=== PATIENT | female | born 1975 | race Caucasian/White ===

== ENCOUNTER 2018-11-20 18:49 | Emergency (ER) | payer OTHER ==
[2018-11-20 21:00] LABS: Absolute Lymphocytes (CBC) 1.7 K/uL (0.7-4.9); Basophils % 0.5 % (0-1.3); Eosinophils % 0.4 % (0-4.4); Hematocrit 38.4 % (36.0-45.0); Lymphocytes % 24.8 % (15.3-44.8); MPV 8.9 fL (7.6-11.3); Monocytes % 10.4 % (3.3-12.3); RBC Red Blood Cell Count 4.17 M/uL (3.86-4.86)
[2018-11-20 21:05] LABS: Urine Blood 2+ (NEG); Urine Glucose NEGATIVE (NEG); Urine Protein 2+ (NEG); Urine Specific Gravity 1.025 (1.005-1.030); Urine pH 5.5 (5.0-7.0)
[2018-11-20 21:17] LABS: Albumin 3.8 g/dL (3.4-5.0); Bilirubin Direct 0.1 mg/dL (0-0.2); Bilirubin Total 0.5 mg/dL (0.2-1.0); Potassium 3.7 mmol/L (3.5-5.1); Protein, Total 8.5 g/dL (6.4-8.2)
[2018-11-20] MEDS ORDERED: KETOROLAC 30 MG/ML INJ ONE (21:19)
[2018-11-20 21:34] LABS: Urine Bacteria >50 /HPF (<20); Urine Culture Reflex Order REFLEXED; Urine RBC <5 /HPF (NONE SEEN)
[2018-11-20] MEDS ORDERED: CEFTRIAXONE/SWI 1gm 1 GM/10 ML SYR ONE (22:26)
[2018-11-20] MEDS ORDERED: NA CHLORIDE 0.9% 250 ML ONE (22:26)
--- NOTE | 2018-11-20 23:29 | EDPHYS ---
Physician Documentation [facility] Name: Gabriel Chase Age: 43 yrs Sex: Female : 1975 Arrival Date: 11/20/2018 Time: 18:50 Bed 14 Private MD: ED Physician Bird Rosas HPI: 11/20 20:47 This 43 yrs old Female presents to ER via Ambulatory with complaints of tw4 Abdominal Pain, Nausea, Dizziness. 20:47 The patient presents to the emergency department with nausea, abdominal pain. Onset: tw4 The symptoms/episode began/occurred yesterday. Possible causes: unknown. The symptoms are aggravated by nothing. The symptoms are alleviated by nothing. Severity of symptoms: At their worst the symptoms were moderate in the emergency department the symptoms are unchanged. The patient has not experienced similar symptoms in the past. 20:47 Associated signs and symptoms: Pertinent positives: left flank pain. tw4 Historical: - Allergies: 19:06 TETRACYCLINES; aj - Home Meds: 19:06 None [Active]; aj - PMHx: 19:06 Kidney stones; aj - PSHx: 19:06 fallopian tube removal; aj - Immunization history:: Adult Immunizations up to date. - Social history:: Smoking status: Patient/guardian denies using tobacco. - Ebola Screening: : Patient negative for fever greater than or equal to 101.5 degrees Fahrenheit, and additional compatible Ebola Virus Disease symptoms Patient denies exposure to infectious person Patient denies travel to an Ebola-affected area in the 21 days before illness onset No symptoms or risks identified at this time. ROS: 20:47 Constitutional: Negative for fever, chills, and weight loss, Eyes: Negative for injury, tw4 pain, redness, and discharge, Cardiovascular: Negative for chest pain, palpitations, and edema, Respiratory: Negative for shortness of breath, cough, wheezing, and pleuritic chest pain, Back: Negative for injury and pain, MS/Extremity: Negative for injury and deformity, Skin: Negative for injury, rash, and discoloration, Neuro: Negative for headache, weakness, numbness, tingling, and seizure. 20:47 Abdomen/GI: Positive for abdominal pain, Negative for Exam: 20:47 Constitutional: This is a well developed, well nourished patient who is awake, alert, tw4 and in no acute distress. Head/Face: Normocephalic, atraumatic. Chest/axilla: Normal chest wall appearance and motion. Nontender with no deformity. No lesions are appreciated. Cardiovascular: Regular rate and rhythm with a normal S1 and S2. No gallops, murmurs, or rubs. Normal PMI, no JVD. No pulse deficits. Respiratory: Lungs have equal breath sounds bilaterally, clear to auscultation and percussion. No rales, rhonchi or wheezes noted. No increased work of breathing, no retractions or nasal flaring. Abdomen/GI: Soft, non-tender, with normal bowel sounds. No distension or tympany. No guarding or rebound. No evidence of tenderness throughout. Back: No spinal tenderness. No costovertebral tenderness. Full range of motion. MS/ Extremity: Pulses equal, no cyanosis. Neurovascular intact. Full, normal range of motion. Neuro: Awake and alert, GCS 15, oriented to person, place, time, and situation. Cranial nerves II-XII grossly intact. Motor strength 5/5 in all extremities. Sensory grossly intact. Cerebellar exam normal. Normal gait. Vital Signs: 19:06 BP 133 / 72; Pulse 77; Resp 16; Temp 98.0; Pulse Ox 100% on R/A; Weight 63.5 kg; Height 4 ft. 11 in. (149.86 cm); 20:20 BP 166 / 52; Pulse 74; Resp 16; Temp 98.8; Pulse Ox 99% on R/A; Pain 7/10; ch 22:02 BP 126 / 62; Pulse 68; Resp 14; Temp 98.8; Pulse Ox 99% on R/A; Pain 6/10; ch 23:43 BP 115 / 62; Pulse 65; Resp 14; Temp 98.8; Pulse Ox 99% on R/A; Pain 4/10; ch 19:06 Body Mass Index 28.28 (63.50 kg, 149.86 cm) MDM: 19:09 Patient medically screened. 11/20 19:13 Order name: Basic Metabolic Panel [facility] 11/20 19:13 Order name: CBC with Diff; Complete Time: 21:21 11/20 21:20 Interpretation: Within normal limits. 11/20 19:13 Order name: Creatinine for Radiology; Complete Time: 22:44 [facility] 11/20 22:45 Interpretation: Within normal limits: CRE 0.84. [facility] 11/20 19:13 Order name: Hepatic Function; Complete Time: 21:20 [facility] 11/20 21:20 Interpretation: Normal except: TP 8.5; GLOB 4.7; A/G 0.8; AST 6. [facility] 11/20 19:13 Order name: Lipase; Complete Time: 21:21 [facility] 11/20 21:21 Interpretation: Within normal limits: LIP 81. [facility] 11/20 19:14 Order name: Basic Metabolic Panel; Complete Time: 21:20 [facility] 11/20 21:20 Interpretation: Normal except: GFR 72. [facility] 11/20 20:35 Order name: Chest Single View XRAY [facility] 11/20 20:50 Order name: Urine Microscopic Only; Complete Time: 22:44 [facility] 11/20 22:45 Interpretation: UWBC >50; UBACT >50. [facility] 11/20 20:57 Order name: Urine Dipstick--Ancillary (enter results); Complete Time: 21:21 [facility] 11/20 21:21 Interpretation: Normal except: UESTR 1+; U NIT POSITIVE; UBLD 2+; UKET 1+; UPROT 2+. [facility] 11/20 20:57 Order name: Urine --Ancillary (enter results); Complete Time: 21:21 [facility] 11/20 21:21 Interpretation: Within normal limits: URINE PREG NEG. [facility] 11/20 21:22 Order name: CT Stone Protocol [facility] 11/20 21:36 Order name: Urine Culture [facility] 11/20 19:13 Order name: IV Saline Lock; Complete Time: 20:56 [facility] 11/20 19:13 Order name: Labs collected and sent; Complete Time: 20:56 [facility] 11/20 19:13 Order name: Urine Dipstick-Ancillary (obtain specimen); Complete Time: 20:56 [facility] 11/20 20:35 Order name: Urine Test (obtain specimen); Complete Time: 20:56 [facility] Administered Medications: 20:54 Drug: TORadol 30 mg Route: IVP; Site: left antecubital; 21:30 Follow up: Response: No adverse reaction 22:31 Drug: Rocephin - (cefTRIAXone) 1 grams Route: IVPB; Infused Over: 30 mins; Site: left ch antecubital; Disposition: 11/20/18 23:28 Discharged to Home. Impression: Urinary tract infection, site not specified. - Condition is Stable. - Discharge Instructions: Urinary Tract Infection, Adult, Urinary Tract Infection, Adult, [id number]. - Prescriptions for Zofran 4 mg Oral Tablet - take 1 tablet by ORAL route every 12 hours As needed; 20 tablet. Macrobid 100 mg Oral Capsule - take 1 capsule by ORAL route every 12 hours for 10 days; 20 capsule. - Work release form, Medication Reconciliation Form, Thank You Letter, Antibiotic Education, Prescription Opioid Use form. - Follow up: Private Physician; When: Upon discharge from the Emergency Department; Reason: If symptoms return, Recheck today's complaints, Continuance of care. - Problem is new. - Symptoms have improved. Signatures: Dispatcher [employer] EDMS Samaria Jones RN RN ch Myers, Amanda, RN RN aj Wadley, Terrence, MD MD tw4 Corrections: (The following items were deleted from the chart) 23:44 23:28 11/20/2018 23:28 Discharged to Home. Impression: Urinary tract infection, site ch not specified. Condition is Stable. Forms are Medication Reconciliation Form, Thank You Letter, Antibiotic Education, Prescription Opioid Use. Follow up: Private Physician; When: Upon discharge from the Emergency Department; Reason: If symptoms return, Recheck today's complaints, Continuance of care. Problem is new. Symptoms have improved. tw4
--- NOTE | 2018-11-20 23:29 | ER ---
Nurse's Notes [facility] Name: Gabriel Chase Age: 43 yrs Sex: Female : 1975 Arrival Date: 11/20/2018 Time: 18:50 Bed 14 Private MD: Diagnosis: Urinary tract infection, site not specified Presentation: 11/20 19:05 Presenting complaint: Patient states: Left flank pain that started suddenly today with aj nausea. Transition of care: patient was not received from another setting of care. Onset of symptoms was November 20, 2018. Risk Assessment: Do you want to hurt yourself or someone else? Patient reports no desire to harm self or others. Initial Sepsis Screen: Does the patient meet any 2 criteria? No. Patient's initial sepsis screen is negative. Does the patient have a suspected source of infection? No. Patient's initial sepsis screen is negative. Care prior to arrival: None. 19:05 Method Of Arrival: Ambulatory aj 19:05 Acuity: DARSHAN 3 aj Triage Assessment: 19:06 General: Appears in no apparent distress. comfortable, Behavior is calm, cooperative, aj appropriate for age. Pain: Complains of pain in posterior aspect of left lateral abdomen and anterior aspect of left lateral abdomen. Neuro: Level of Consciousness is awake, alert, obeys commands, Oriented to person, place, time, situation, Appropriate for age. Respiratory: Airway is patent Respiratory effort is even, unlabored, Respiratory pattern is regular, symmetrical. GI: Reports nausea. Derm: Skin is intact, is healthy with good turgor, Skin is pink, warm \T\ dry. normal. Historical: - Allergies: 19:06 TETRACYCLINES; aj - Home Meds: 19:06 None [Active]; aj - PMHx: 19:06 Kidney stones; aj - PSHx: 19:06 fallopian tube removal; aj - Immunization history:: Adult Immunizations up to date. - Social history:: Smoking status: Patient/guardian denies using tobacco. - Ebola Screening: : Patient negative for fever greater than or equal to 101.5 degrees Fahrenheit, and additional compatible Ebola Virus Disease symptoms Patient denies exposure to infectious person Patient denies travel to an Ebola-affected area in the 21 days before illness onset No symptoms or risks identified at this time. Assessment: 20:20 General: Appears in no apparent distress. comfortable, Behavior is calm, cooperative, ch appropriate for age. Pain: Complains of pain in left flank and left mid back and anterior aspect of left lateral abdomen and posterior aspect of left lateral abdomen Pain currently is 8 out of 10 on a pain scale. Pain began gradually, last night. 20:20 Neuro: No deficits noted. Respiratory: No deficits noted. Breath sounds are clear ch bilaterally. GI: No signs and/or symptoms were reported involving the gastrointestinal system. Bowel sounds present X 4 quads. Abd is soft and non tender X 4 quads. Reports nausea, vomiting. Derm: Skin is pink, warm \T\ dry. 21:47 Reassessment: Patient appears in no apparent distress at this time. Patient and/or ch family updated on plan of care and expected duration. Pain level reassessed. Patient is alert, oriented x 3, equal unlabored respirations, skin warm/dry/pink. 22:02 Reassessment: Patient appears in no apparent distress at this time. No changes from previously documented assessment. Patient and/or family updated on plan of care and expected duration. Pain level reassessed. Patient is alert, oriented x 3, equal unlabored respirations, skin warm/dry/pink. 23:43 Reassessment: Patient appears in no apparent distress at this time. Patient and/or ch family updated on plan of care and expected duration. Pain level reassessed. Patient is alert, oriented x 3, equal unlabored respirations, skin warm/dry/pink. Patient states feeling better. Patient states symptoms have improved. Vital Signs: 19:06 BP 133 / 72; Pulse 77; Resp 16; Temp 98.0; Pulse Ox 100% on R/A; Weight 63.5 kg; Height 4 ft. 11 in. (149.86 cm); 20:20 BP 166 / 52; Pulse 74; Resp 16; Temp 98.8; Pulse Ox 99% on R/A; Pain 7/10; ch 22:02 BP 126 / 62; Pulse 68; Resp 14; Temp 98.8; Pulse Ox 99% on R/A; Pain 6/10; ch 23:43 BP 115 / 62; Pulse 65; Resp 14; Temp 98.8; Pulse Ox 99% on R/A; Pain 4/10; ch 19:06 Body Mass Index 28.28 (63.50 kg, 149.86 cm) ED Course: 18:50 Patient arrived in ED. as 19:05 Triage completed. aj 19:06 Arm band placed on right wrist. Patient placed in an exam room. 19:09 Bird Rosas MD is Attending Physician. tw4 19:58 Samaria Jones, RN is Primary Nurse. 20:00 Patient has correct armband on for positive identification. Bed in low position. Call light in reach. Side rails up X 1. Adult w/ patient. Pulse ox on. NIBP on. Warm blanket given. 20:40 Inserted saline lock: 22 gauge in left antecubital area, using aseptic technique. Blood ch collected. 20:40 Initial lab(s) drawn, by me, sent to lab. Urine collected: clean catch specimen, cloudy.ch 21:17 Chest Single View XRAY In Process Unspecified. EDMS 21:50 CT Stone Protocol In Process Unspecified. EDMS 23:43 No provider procedures requiring assistance completed. IV discontinued, intact, ch bleeding controlled, No redness/swelling at site. Pressure dressing applied. Administered Medications: 20:54 Drug: TORadol 30 mg Route: IVP; Site: left antecubital; 21:30 Follow up: Response: No adverse reaction ch 22:31 Drug: Rocephin - (cefTRIAXone) 1 grams Route: IVPB; Infused Over: 30 mins; Site: left ch antecubital; Outcome: 23:28 Discharge ordered by . tw4 23:43 Discharged to home ambulatory, with family. 23:43 Condition: stable 23:43 Discharge instructions given to patient, family, Instructed on discharge instructions, follow up and referral plans. medication usage, Demonstrated understanding of instructions, follow-up care, medications, Prescriptions given X 2. 23:44 Patient left the ED. Signatures: Dispatcher [employer] EDIA Samaria Jones, Betsy Bob RN, ch, RN RN aj Martinez, Amelia as Bird Rosas MD MD tw4
--- NOTE | 2018-11-21 07:38 | RAD REPORT ---
EXAM DESCRIPTION: RAD - Chest Single View - 11/20/2018 9:15 pm CLINICAL HISTORY: Left-sided chest and flank pain COMPARISON: None. TECHNIQUE: AP portable chest image was obtained 2049 hours . FINDINGS: Lungs are clear. Heart and vasculature are normal. No measurable pleural effusion and no p neumothorax. No acute bony abnormality seen. No acute aortic findings suspected. IMPRESSION: No acute cardiopulmonary process.
--- NOTE | 2018-11-21 09:57 | RAD REPORT ---
EXAM DESCRIPTION: CT - Stone Protocol - 11/21/2018 2:56 am CLINICAL HISTORY: 32 years Male LOWER BACK PAIN COMPARISON: None TECHNIQUE: Multiplanar imaging through the lumbar spine with contrast. This exam was performed acc ording to our departmental dose-optimization program, which includes automated exposure control, adju stment of the mA and/or kV according to patient size and/or use of iterative reconstruction technique . FINDINGS: L5-S1 postsurgical changes with evidence of prior discectomy and laminectomy. Continued evidence of bilateral L5 spondylolysis. No fracture.Small retrolisthesis of L4 on L5. Disc spaces are preserved. Amorphous soft tissue in the paraspinal region predominantly the laminectomy bed suggestive of scarri ng. The sac is not well evaluated at this level. Visualized abdomen demonstrates no acute abnormality. The appendix is seen and is within normal limit s. Hepatic steatosis IMPRESSION: No fracture or subluxation. L5-S1 spondylolysis and postsurgical changes with incomplete characterization of paraspinal soft tiss ue most suggestive of scarring. MRI lumbar spine with and without contrast recommended for further ch aracterization. Hepatic steatosis. Electronically signed by: Brandon Galan DO 11/20/2018 10:18 PM CDT Due to temporary technical issues with the PACS/Fluency reporting system, reports are being signed by the in house radiologist as a courtesy to ensure prompt reporting. The interpreting radiologist is f ully responsible for the content of the report.
== END 2018-11-20 23:44 | disposition home or self-care (01) ==
LOC: ER 18:49
DX: N39.0 Urinary tract infection, site not specified (principal); Z88.1 Allergy status to other antibiotic agents
CPT/HCPCS: 36415; 71045; 74176; 76377; 80048; 80076; 81003; 81015; 81025; 83690; 85025; 87086; 87088; J0696